=== PATIENT | female | born 1950 | race Caucasian/White ===

== ENCOUNTER 2018-12-16 13:40 | Emergency (ER) | payer OTHER ==
[~2018-12-16] VITALS: Ht 157.5 cm; Wt 72.6 kg
[2018-12-16 16:28] VITALS: BP 135/87
== END 2018-12-16 16:34 | disposition home or self-care (01) ==
LOC: ER 13:45
DX: R51 Headache (principal); M54.12 Radiculopathy, cervical region
CPT/HCPCS: 70450; 72125